=== PATIENT | female | born 1965 | race Hispanic/Latino ===

== ENCOUNTER 2025-09-14 02:54 | Emergency (ER) | payer OTHER ==
[~2025-09-14] VITALS: Ht 162.6 cm; Wt 79.4 kg
--- NOTE | 2025-09-14 03:09 | NUR ---
REPORT TO [facility]
--- NOTE | 2025-09-14 03:47 | EKG ---
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
--- NOTE | 2025-09-14 04:02 | ERN ---
ED Note History of Present Illness Stated Complaint: WHEEZING Chief Complaint: Other Problems Time Seen by MD: 03:15 Dictation: This is a 60-year-old female who presented to the emergency room with complaints of diffuse wheezing. She has a chronic dry nonproductive cough. Had a history of CHF and pneumonia many years ago and she started worrying when she began wheezing and wanted her lungs checked out. She also reports a mid back pain with a breathing. She received a bronchodilator treatment on her way to the hospital. And she admits to feeling somewhat better. No fevers chills or rigors. She also had some mid back pain between the shoulder blades. She states that the pain gets worse when she takes a breathing treatment and after the aerosol treatment on her way her pain is also improved no history of any PND orthopnea or chest pain diaphoresis or palpitations. Temperature 97 pulse 94 respirations 20 blood pressure 145/100 pulse oximetry 95% on room air His medical problems include CHF, hypertension, pneumonia Allergies: Coded Allergies: No Known Allergies (Unverified Allergy, Unknown, 09/14/25) Home Meds Active Scripts Albuterol Sulfate (Ventolin Hfa/Proventil Hfa/Proair Hfa) 90 Mcg Puff, 1 PUFF IH Q4H PRN for SHORTNESS OF BREATH for 5 Days, #1 INH 0 Refills PHARMACY TO DISPENSE 1 INHALER FOR USE Prov:KENYA MARCUS MD 09/14/25 Azithromycin (Azithromycin) 250 Mg Tablet, 1 TAB PO AD for 5 Days, #6 TAB 0 Refills 2 the first day followed by 1 for days 2-5 Prov:KENYA MARCUS MD 09/14/25 Prednisone (Prednisone) 20 Mg Tablet, 1 TAB PO AD for 6 Days, #14 TAB 0 Refills TAKE 1 TAB BY MOUTH THREE TIMES PER DAY X3 DAYS, THEN TAKE 1 TAB BY MOUTH TWICE A DAY X2 DAYS, THEN TAKE 1 TAB BY MOUTH ONCE A DAY X1 DAY. Prov:KENYA MARCUS MD 09/14/25 Past Medical History Past Medical History: CHF, Hypertension, Pneumonia Surgical History: Family History: Negative Social History: Negative History: Not Applicable RN Note Reviewed/Agreed w/PFSH: Yes Review of System Dictation Constitutional: Negative for fever,chills, and weight loss Eyes: Negative for injury, pain,redness, and discharge ENT: Negative for injury,pain or swelling Cardiovascular: Negative for chest pain, palpitations, and edema Respiratory: Negative for shortness of breath, cough, and positive for wheezing, Abdomen/GI: Negative for abdominal pain, nausea, vomiting, diarrhea, and constipation Back: Negative for injury and pain : Negative for injury, bleeding and discharge MS/Extremity: Negative for injury and deformity Skin: Negative for rash, and discoloration Neuro: Negative for headache, weakness, numbness, tingling, and seizure Psych: Negative for suicide ideation, homicidal ideation, and hallucinations Initial Vital Sign VS Vital Signs Date Time Temp Pulse Resp B/P (MAP) Pulse Ox O2 Delivery O2 Flow Rate FiO2 09/14/25 03:04 97.0 94 20 145/100 95 Room Air 09/14/25 03:57 0 21 Physical Exam Dictation General: awake, alert, NAD Head/Face: Normocephalic, atraumatic Eyes: PERRL, EOMI, vision at baseline ENT: oral cavity clear, TMs clear, no signs of infection Neck: Trachea midline, supple, no nuchal rigidity Cardiovascular: RRR, normal S1/S2, No MRGs, no JVD Respiratory: CTAB, no respiratory distress, No rales or wheezes Abdomen: Soft, non-tender, non-distended, normal bowel sounds, no guarding or rebound. Skin: Warm, dry, normal turgor, no rash MS/Extremity: Pulses equal, no cyanosis, neurovascular intact, FROM Neuro: COAx4, GCS 15, strength 5/5, CN 2-12 intact, normal cerebellar exam, normal gait, Psych: Normal behavior, mood, and affect normal Extremities-trace edema without any palpable cords, Homans sign is negative Results (Laboratory/Radiology) Laboratory/Radiology Laboratory Tests Test 09/14/25 03:55 09/14/25 04:37 White Blood Count 6.4 K/uL (4.8-10.8) Red Blood Count 4.42 MIL/uL (4.00-5.50) Hemoglobin 12.5 g/dL (12.0-16.0) Hematocrit 38.3 % (36-48) Mean Corpuscular Volume 86.7 fL (79-99) Mean Corpuscular Hemoglobin 28.3 pg (27.0-33.0) Mean Corpuscular Hemoglobin Concent 32.6 g/dL (32.0-36.0) Red Cell Distribution Width 13.1 % (11.0-15.5) Platelet Count 249 K/uL (130-400) Mean Platelet Volume 10.7 fL (7.5-10.5) H Immature Granulocyte % (Auto) 0.2 % (0-1) Neutrophils (%) (Auto) 45.4 % (40.0-77.0) Lymphocytes (%) (Auto) 37.3 % (21.0-51.0) Monocytes (%) (Auto) 12.9 % (3.0-13.0) Eosinophils (%) (Auto) 3.9 % (0.0-8.0) Basophils (%) (Auto) 0.3 % (0.0-5.0) Neutrophils # (Auto) 2.9 K/uL (1.8-7.7) Lymphocytes # (Auto) 2.4 K/uL (1.0-4.8) Monocytes # (Auto) 0.8 K/uL (0.1-1.0) Eosinophils # (Auto) 0.25 K/uL (0.00-0.70) Basophils # (Auto) 0.02 K/uL (0.00-0.20) Absolute Immature Granulocyte (auto 0.01 K/uL (0-1) Nucleated Red Blood Cells 0.0 % (0.0-0.19) Sodium Level 141 mmol/L (136-145) Potassium Level 3.8 mmol/L (3.5-5.1) Chloride Level 106 mmol/L (101-111) Carbon Dioxide Level 27 mmol/L (21-32) Blood Urea Nitrogen 13 mg/dL (7-18) Creatinine 0.6 mg/dL (0.5-1.0) Glomerular Filtration Rate Calc 101 mL/min (>90) Random Glucose 107 mg/dL (70-105) H Total Calcium 8.8 mg/dL (8.5-10.1) Total Creatine Kinase 52 U/L (21-232) Troponin I High Sensitivity 11.4 ng/L (4-50) B-Type Natriuretic Peptide 27 pg/mL (0-100) Influenza Type A Antigen NEGATIVE FOR TYPE A Influenza Type B Antigen NEGATIVE FOR TYPE B SARS-CoV-2 Antigen (Rapid) PRESUMPTIVE NEGATIVE Labs Reviewed?: Yes X-RAY Comment: REASON: Dyspnea/SOB ORDERING PHYSICIAN: KENYA MARCUS MD PROCEDURE: CXR1VW - CHEST 1VW EXAM: CR Chest, 1 View. CLINICAL HISTORY: Dyspnea/SOB COMPARISON: None provided. FINDINGS: LUNGS: The lungs show no infiltrate or other acute finding. PLEURAL SPACES: No pleural effusion or pneumothorax. MEDIASTINUM: The cardiomediastinal silhouette is within normal limits. BONES: No aggressive appearing osseous lesion seen. IMPRESSION: No acute cardiopulmonary pathology is evident. /[place] DICTATED BY: LEANDRO JONES Jr., MD DATE: 09/14/25607 ELECTRONICALLY SIGNED BY: LEANDRO JONES Jr., MD DATE: 09/14/25607 ED Course ED Course Orders Procedure Category Date Status Time O2 Nc Keep Sats CPOE 09/14/25 Transmitted Greater 92% 03:29 Cbc With Differential LAB 09/14/25 Complete 03:29 Cardiac Panel LAB 09/14/25 Complete 03:29 Chest 1vw RAD 09/14/25 Resulted 03:29 12 Lead Ekg Tracing- EKG 09/14/25 Resulted Technical 03:29 Methylprednisolone PHA 09/14/25 Complete Succ 125mg (Solu-Medr 03:30 Basic Metabolic Panel LAB 09/14/25 Complete 03:29 B-Type Natriuretic LAB 09/14/25 Complete Peptide 03:29 Influenza Type A & B, LAB 09/14/25 Complete Rapid 04:02 Covid19 (Sars Antigen LAB 09/14/25 Complete Rapid) 04:02 Current Medications Medications (Trade) Dose Ordered Sig/Jessica Route PRN Reason Start Time Stop Time Status Last Admin Dose Admin Methylprednisolone Sodium Succinate (Solu-medROL 125MG) 125 mg ONCE ONCE IVP 09/14/25 03:30 09/14/25 03:37 DC 09/14/25 04:28 Vital Signs Date Time Temp Pulse Resp B/P (MAP) Pulse Ox O2 Delivery O2 Flow Rate FiO2 09/14/25 06:15 97.5 85 15 160/83 96 Room Air* 0 21 09/14/25 05:10 86 12 156/73 97 Room Air* 0 09/14/25 03:57 97.0 87 13 154/82 97 Room Air* 0 21 09/14/25 03:04 97.0 94 20 145/100 95 Room Air Medical Decision Making MDM Differential diagnosis-acute bronchitis, reactive airway disease, microaspiration from gastroesophageal reflux, COPD exacerbation, congestive heart failure, restrictive ventilatory impairment due to obesity and poor endurance, pulmonary embolus, bilateral pneumonia This is a 60-year-old female who presented to the emergency room with complaints of diffuse wheezing. She has a chronic dry nonproductive cough. Had a history of CHF and pneumonia many years ago and she started worrying when she began wheezing and wanted her lungs checked out. She also reports a mid back pain with a breathing. She received a bronchodilator treatment on her way to the hospital. And she admits to feeling somewhat better. No fevers chills or rigors. She also had some mid back pain between the shoulder blades. She s tates that the pain gets worse when she takes a breathing treatment and after the aerosol treatment on her way her pain is also improved no history of any PND orthopnea or chest pain diaphoresis or palpitations. Temperature 97 pulse 94 respirations 20 blood pressure 145/100 pulse oximetry 95% on room air His medical problems include CHF, hypertension, pneumonia 4:20 a.m. reviewed labs CBC is with a normal limits BNP 7 is also with a normal limits troponins are negative. Brain natriuretic peptide is 27. Chest x-ray no acute infiltrate or pleural effusions. I updated the patient on all the labs and possibilities that this may simply be a reactive airway disease or perhaps a COPD exacerbation. And she responded to bronchodilators as well as a dose of steroids. She will be discharged to home on the same regimen with a a Z-Jhonathan Rationale: Tests considered and ordered secondary to shared decision making include: Labs and chest x-ray Previous outside records reviewed: Old ER visits. Risk of complication and/or morbidity or mortality of patient management: None Medications-Per medication reconciliation Need for hospitalization: Patient does not meet criteria for hospitalization. Need for emergency major/minor surgery: No There are no social concerns with this patient. Prescription drug management Prescriptions will include symptomatic care Patient's prior external medical records from other ER visits were reviewed by me as indicated. Prior testing and results from previous visits were reviewed. Prior tests were taken into account with medical decision making and resource utilization, independent historian/historians were used to obtain complete medical history. I independently interpreted the test that were performed, results were reviewed by me and considered findings on radiology if ordered. Medical management and examination interpretation discussions were had by me with other qualified healthcare professionals as indicated for the patient's care. Problem List Problem List: (1) Acute bronchitis (2) Upper respiratory infection with cough and congestion DX & DISP Disposition: Discharge Departure Impression: Primary Impression: Acute bronchitis Additional Impression: Upper respiratory infection with cough and congestion Condition: Stable Scripts Albuterol Sulfate (Ventolin Hfa/Proventil Hfa/Proair Hfa) 90 Mcg Puff 1 PUFF IH Q4H PRN for SHORTNESS OF BREATH for 5 Days, #1 INH 0 Refills PHARMACY TO DISPENSE 1 INHALER FOR USE Prov: KENYA MARCUS MD 09/14/25 Azithromycin (Azithromycin) 250 Mg Tablet 1 TAB PO AD for 5 Days, #6 TAB 0 Refills 2 the first day followed by 1 for days 2-5 Prov: KENYA MARCUS MD 09/14/25 Prednisone (Prednisone) 20 Mg Tablet 1 TAB PO AD for 6 Days, #14 TAB 0 Refills TAKE 1 TAB BY MOUTH THREE TIMES PER DAY X3 DAYS, THEN TAKE 1 TAB BY MOUTH TWICE A DAY X2 DAYS, THEN TAKE 1 TAB BY MOUTH ONCE A DAY X1 DAY. Prov: KENYA MARCUS MD 09/14/25 Additional Instructions: Patient and the caregiver have been informed of all the diagnostic tests and the imaging conducted during the today's visit to the emergency room and has verbalized understanding of the results I have personally reviewed and interpreted all diagnostic exams performed here in the ER today as well as the vital signs documented by the nursing staff. The patient is now being discharged to home and should follow up with the primary care physician or the specialist as directed by the ER staff. Referrals: NONE (PCP) KENYA MARCUS MD Sep 14, 2025 04:02
[2025-09-14 04:10] LABS: IMMATURE GRANULOCYTE ABSOLUTE 0.01 K/uL (0-1); NUCLEATED RED BLOOD CELLS 0.0 % (0.0-0.19); PLATELET COUNT (AUTO) 249 K/uL (130-400); RED BLOOD CELL COUNT(AUTO) 4.42 MIL/uL (4.00-5.50); RED CELL DISTRIBUTION WIDTH 13.1 % (11.0-15.5); WHITE BLOOD COUNT (AUTO) 6.4 K/uL (4.8-10.8)
[2025-09-14 04:25] LABS: CREATININE 0.6 mg/dL (0.5-1.0); GLOMERULAR FILTR. RATE CALC 101.0 mL/min (>90); GLUCOSE,RANDOM 107.0 mg/dL (70-105); SODIUM SERUM 141.0 mmol/L (136-145); UREA NITROGEN, BLOOD 13.0 mg/dL (7-18)
[2025-09-14 04:33] LABS: CREATINE KINASE, TOTAL 52.0 U/L (21-232)
--- NOTE | 2025-09-14 05:09 | HMCIMG ---
EXAM: CR Chest, 1 View. CLINICAL HISTORY: Dyspnea/SOB COMPARISON: None provided. FINDINGS: LUNGS: The lungs show no infiltrate or other acute finding. PLEURAL SPACES: No pleural effusion or pneumothorax. MEDIASTINUM: The cardiomediastinal silhouette is within normal limits. BONES: No aggressive appearing osseous lesion seen. IMPRESSION: No acute cardiopulmonary pathology is evident. /[place]
[2025-09-14 05:14] LABS: COVID19 (SARS ANTIGEN RAPID) PRESUMPTIVE NEGATIVE (NEGATIVE)
[2025-09-14 05:32] LABS: INFLUENZA TYPE A NEGATIVE FOR TYPE A (NEGATIVE)
[2025-09-14 05:33] LABS: INFLUENZA TYPE B NEGATIVE FOR TYPE B (NEGATIVE)
[2025-09-14] MEDS ORDERED: ALBUHFA IH (05:53)
[2025-09-14] MEDS ORDERED: AZIT250T9 PO (05:53)
[2025-09-14] MEDS ORDERED: PRED20TA3 PO (05:53)
[2025-09-14 06:15] VITALS: BP 160/83; PULSE 85; RESP 15; TEMP 97.5; O2SAT 96
== END 2025-09-14 06:29 | disposition home or self-care (01) ==
LOC: EDH 02:54
DX: J20.9 Acute bronchitis, unspecified (principal); J06.9 Acute upper respiratory infection, unspecified; R09.81 Nasal congestion; Z87.01 Personal history of pneumonia (recurrent); Z20.822 Contact with and (suspected) exposure to COVID-19
CPT/HCPCS: 99285; 96365; 71045; 96366; 87426; 82550; 84484; 80048; 83880; 85025; 87804 ×2; 36415; 93005; J2919